=== PATIENT | female | born 2000 | race Two or more races ===

== ENCOUNTER 2024-09-02 09:35 | Emergency (ER) | payer OTHER ==
[~2024-09-02] VITALS: Ht 165.1 cm; Wt 109.3 kg
[2024-09-02] MEDS ORDERED: FOLIC ACID20 MG (09:43)
[2024-09-02 11:37] LABS: HEMATOCRIT 35.4 % (36.0-45.00); HEMOGLOBIN 11.3 g/dL (12.0-15.00); MEAN CELL VOLUME 74.7 fL (80.00-100.00); MEAN CORPUSCULAR HEMOGLOBIN 23.9 pg (27.00-32.0); MEAN CORPUSCULAR HGB CONC 31.9 g/dl (32.0-36.0); PLATELET COUNT 316 K/uL (150-450); RED BLOOD COUNT 4.74 M/uL (4.00-6.00); RED CELL DISTRIBUTION WIDTH 18.1 % (11.5-14.5)
[2024-09-02 12:02] LABS: URINE APPEARANCE Clear; URINE BILIRRUBIN Negative (NEGATIVE); URINE BLOOD Large; URINE COLOR Yellow; URINE GLUCOSE Negative (NEGATIVE); URINE KETONE Negative (NEGATIVE); URINE LEUKOCYTE Moderate; URINE NITRATE Negative; URINE PROTEIN 30 (NEGATIVE)
[2024-09-02 12:08] LABS: URINE BACTERIA 882.4 uL (0.0-1933); URINE EPITHELIAL CELLS 13.9 uL (0.0-38.8); URINE RBC 588.1 uL (0.0-20.8); URINE WBC 168.4 uL (0.0-23.2)
[2024-09-02 12:09] LABS: URINE CAST 0.44 uL (0.0-1.40)
== END 2024-09-02 17:23 | disposition home or self-care (01) ==
LOC: ER 09:37
PROVIDERS: Emergency Medicine
DX: O03.9 Complete or unspecified spontaneous abortion without complication (principal); O30.001 Twin pregnancy, unspecified number of placenta and unspecified number of amniotic sacs, first trimester; Z3A.01 Less than 8 weeks gestation of pregnancy

== ENCOUNTER 2025-06-18 11:50 | Emergency (ER) | payer OTHER ==
[~2025-06-18] VITALS: Ht 165.1 cm; Wt 108.9 kg
[~2025-06-18 11:50] MED LIST: FOLIC ACID20 MG
[2025-06-18] MEDS ORDERED: DEXAMETHASONE SODIUM PHOSPHATE 4 MG/ML VIAL IV ONE (14:30)
[2025-06-18] MEDS ORDERED: 0.9 % SODIUM CHLORIDE 1,000 ML IV SCH (14:30)
[2025-06-18] MEDS ORDERED: ORPHENADRINE CITRATE 30 MG/ML AMPUL IM ONE (14:30)
[2025-06-18] MEDS ORDERED: FAMOTIDINE/PF 20 MG in 0.9 % SODIUM CHLORIDE 8 ML IV PUSH ONE (14:30)
[2025-06-18] MEDS ORDERED: DEXAMETHASONE SODIUM PHOSPHATE 4 MG/ML VIAL ONE (15:03)
[2025-06-18] MEDS ORDERED: FAMOTIDINE/PF 20 MG/2 ML VIAL ONE (15:03)
[2025-06-18] MEDS ORDERED: ORPHENADRINE CITRATE 30 MG/ML AMPUL ONE (15:03)
[2025-06-18 16:41] LABS: URINE APPEARANCE Turbid; URINE BILIRRUBIN Negative (NEGATIVE); URINE BLOOD Negative; URINE COLOR Yellow; URINE GLUCOSE Negative (NEGATIVE); URINE KETONE Negative (NEGATIVE); URINE LEUKOCYTE Trace; URINE NITRATE Negative; URINE PROTEIN Negative (NEGATIVE); URINE UROBILINOGEN 0.2 E.U./dl
[2025-06-18 16:45] LABS: URINE CAST 1.61 uL (0.0-1.40); URINE RBC 3.5 uL (0.0-20.8); URINE WBC 86.9 uL (0.0-23.2)
[2025-06-18 16:51] LABS: INR 1.05
[2025-06-18 17:00] LABS: ALT/SGPT 22 U/L (12-78); AST/SGOT 13 U/L (15-37); BILIRUBIN TOTAL 0.48 mg/dL (0.3-1.2); BUN CREA RATIO 8 (7.0-25.0); CREATININE SERUM 0.89 mg/dL (0.55-1.02); GFR 76.08; GLOBULINA 3.4 G/DL (2.4-3.5); GLUCOSE FASTING 77 mg/dL (65-100); OSMOLALITY SERUM 280 MOSM/KG (275-295)
[2025-06-18 17:01] LABS: HCG QUANTITATIVE < 1 mUI/mL (1-3)
[2025-06-18 17:14] LABS: BASO % 0.6 % (0.1-1.2); EOS # 1.08 (0.04-0.54); EOS % 12.9 % (0.7-7.0); LYMPH # 1.71 (1.18-3.74); LYMPH % 20.4 % (19.3-53.1); MEAN PLATELET VOLUME 10.00 fl (9.4-12.4); MONO # 0.64 (0.24-0.82); MONO % 7.6 % (4.7-12.5); NEUT # 4.89 (1.56-6.13); NEUT % 58.3 % (34.0-71.1); RED CELL DISTRIBUTION WIDTH 17.2 % (11.6-14.4)
[2025-06-18 17:22] LABS: URINE BACTERIA > 9821.5 uL (0.0-1933); URINE EPITHELIAL CELLS > 201.7 uL (0.0-38.8)
[2025-06-18 17:23] LABS: TYPE CELLS SQUAMOUS; URINE MUCUS SCANT
== END 2025-06-18 20:24 | disposition home or self-care (01) ==
LOC: ER 11:51
PROVIDERS: General Practice
DX: T14.8XXA Other injury of unspecified body region, initial encounter (principal); V49.9XXA Car occupant (driver) (passenger) injured in unspecified traffic accident, initial encounter; W22.10XA Striking against or struck by unspecified automobile airbag, initial encounter; Y93.89 Activity, other specified; Y92.413 State road as the place of occurrence of the external cause; Y99.9 Unspecified external cause status; N20.0 Calculus of kidney; D64.9 Anemia, unspecified